=== PATIENT | female | born 1940 | race Caucasian/White ===

== ENCOUNTER 2017-01-25 08:04 | Emergency (ER) | payer MEDICARE, OTHER ==
--- NOTE | 2017-01-25 09:05 | ER PHYSICIAN DOCUMENTATION ---
Physician Documentation [facility] Name:Stacie Hartman Age:76 yrs Sex:Female :1940 Arrival Date:01/25/2017 Time:08:04 Bed5 Private MD: Edgard Neff Disposition: 01/25 10:07 Chart complete. tl1 Disposition: 01/25/17 08:54 Discharged to Home/Self Care. Impression: Acute Neck Pain. - Condition is Good. - Discharge Instructions: NECK PAIN, No Trauma. - Prescriptions for North 5- 325 mg Oral - take 1 tablet by ORAL route every 6 hours As needed; 20 tablet. Robaxin 500 mg Oral - take 1 tablet by ORAL route every 6 hours As needed; 40 tablet. Zofran 4 mg Oral - take 1-2 tablet by ORAL route every 4-6 hours As needed; 10 tablet. - Medical Reconciliation form form. - Follow up: Olive Kaur MD; When: 4- 6 days; Reason: Recheck today's complaints, Continuance of care. - Problem is an ongoing problem. - Symptoms are unchanged. HPI: 08:19 This 76 yrs old Female presents to ER with complaints of Neck Pain, >24Hrs tl1 Old. 08:20 The patient or guardian complains of pain. The symptoms are located at the cervical tl1 spine. Onset: The symptom(s)/episode began/occurred gradually, 2 day(s) ago. Context: The neck injury/problem resulted from Reading for a prolonged period of time 3 days ago.. When she awakened the next morning, she had right posterior neck stiffness which has slowly progressed.. Associated signs and symptoms: Pertinent positives: This patient does not have any pertinent positive signs or symptoms associated with neck pain. Pertinent negatives: fever, headache, bladder incontinence, nausea, numbness, tingling, vomiting. The pain radiates a little bit towards the right scapula. Modifying factors: The symptoms are alleviated by remaining still, the symptoms are aggravated by movement. Severity of symptoms: At their worst the symptoms were moderate, in the emergency department the symptoms are unchanged. Risk factors for neck injury: no risk factors present. She has had similar issues in the past and had an MRI of her neck about 5 years ago, but she cannot recall the exact details.. This episode is worse than usual. She denies fever, h/a, incontinence of any N/W/T.. Historical: - Allergies: SULFA (SULFONAMIDES); Codeine; - Home Meds: 1. levothyroxine oral 2. PREVASTATIN - PMHx: HYPOTHYROIDISM; HYPERCHOLESTEROL; - PSHx: Hysterectomy; ELBOW; - Tetanus: < 10 years. - Ebola Screening: : Patient denies travel to an Ebola-affected area in the 21 days before illness onset. No symptoms or risks identified at this time. . - Immunization history: Flu Vaccine < 1 year. - Social history: Smoking status: Patient states was never smoker of tobacco. ROS: 08:20 Neck: Positive for pain with movement, tenderness, Negative for mass, rash, bony tl1 tenderness. 08:20 All other systems are negative. Exam: 08:20 Constitutional: This is a well developed, well nourished patient who is awake, alert, tl1 and in no acute distress. 08:20 Head/face: Exam is negative for acute changes. 08:20 Eyes: Periorbital structures: appear normal, Pupils: equal, round, and reactive to light and accomodation. 08:20 ENT: External ear(s): are unremarkable, Nose: is normal. 08:20 ENT: TM's: NOT EXAMINED. 08:20 Neck: External neck: is normal, C-spine: vertebral tenderness, is not appreciated, ROM/movement: pain, that is moderate, with rotation to the right, with flexion, Meningeal signs: are not present, Lymph nodes: no appreciated lymphadenopathy. 08:20 Cardiovascular: Rate: normal, Rhythm: Heart sounds: normal. 08:20 Respiratory: Respirations: normal, Breath sounds: are normal. 08:20 Abdomen/GI: Palpation: abdomen is soft and non-tender. 08:20 Skin: Exam negative for acute changes. 08:20 Neuro: Orientation: is normal, Mentation: is normal, Memory: is normal, Cranial nerves: grossly normal, Motor: moves all fours, Gait: is steady. Vital Signs: 08:21 BP 183 / 90; Pulse 75; Resp 18; Temp 97.9; Pulse Ox 97% on R/A; Weight 86.18 kg; Height lc 5 ft. 9 in. (175.26 cm); Pain 9/10; 08:45 BP 181 / 74; Pulse 70; Resp 16; Pulse Ox 93% on R/A; 09:00 BP 170 / 74; Pulse 69; Resp 16; Pulse Ox 92% ; 08:21 Body Mass Index 28.06 (86.18 kg, 175.26 cm) MDM: 08:19 Patient medically screened. tl1 09:00 Data reviewed: vital signs, nurses notes, and as a result, I will discharge patient. tl1 Data interpreted: Pulse oximetry:. Counseling: I had a detailed discussion with the patient and/or guardian regarding: the historical points, exam findings, and any diagnostic results supporting the discharge/admit diagnosis, the need for outpatient follow up, to return to the emergency department if symptoms worsen or persist or if there are any questions or concerns that arise at home. Dispensed Medications: No medications were administered Signatures: Lillian Cook, DAVDI RN Edgard Collier MD MD tl1
--- NOTE | 2017-01-25 09:05 | ER NURSING DOCUMENTATION ---
Nurse's Notes [facility] Name:Stacie Hartman Age:76 yrs Sex:Female :1940 Arrival Date:01/25/2017 Time:08:04 Bed5 Private MD: Diagnosis:Acute Neck Pain Presentation: 01/25 08:12 Acuity: MILAN 3 08:25 Presenting complaint: Patient states: C/O RIGHT NECK TIGHTNESS AND PAIN SINCE LAST PM. lc WAS READING IN A COLD LIBRARY YESTERDAY AND NECK GOT STIFF, NO OTHER TRAUMA. NO NUNMBNESS OR TINGLING TO EXTREMETIES. TRIED ADVIL AND TYLENOL WITHOUT RELIEF. Transition of care: Home. Acute neurological deficit: none identified. Notified ED Physician of patient's arrival and CC. 08:25 Method Of Arrival: Private Vehicle Triage Assessment: 08:31 General: Appears uncomfortable, Behavior is appropriate for age, cooperative. Pain: Complains of pain in right side of NECK Pain At worst was 10 out of 10 on a pain scale. Quality of pain is described as aching, throbbing, Pain began 1 day ago. Neuro: Level of Consciousness is awake, alert, Oriented to person, place, time, event. Neuro: Denies paresthesias numbness. Derm: Skin is pink, warm & dry. Historical: - Allergies: SULFA (SULFONAMIDES); Codeine; - Home Meds: 1. levothyroxine oral 2. PREVASTATIN - PMHx: HYPOTHYROIDISM; HYPERCHOLESTEROL; - PSHx: Hysterectomy; ELBOW; - Tetanus: < 10 years. - Ebola Screening: : Patient denies travel to an Ebola-affected area in the 21 days before illness onset. No symptoms or risks identified at this time. . - Immunization history: Flu Vaccine < 1 year. - Social history: Smoking status: Patient states was never smoker of tobacco. Screenin:33 Infectious Disease Risk None. Abuse screen: Denies threats or abuse. Denies injuries from another. Nutritional screening: No deficits noted. Assessment: 08:33 See Triage Assessment done by same RN. Neuro: Level of Consciousness is awake, alert. Vital Signs: 08:21 BP 183 / 90; Pulse 75; Resp 18; Temp 97.9; Pulse Ox 97% on R/A; Weight 86.18 kg; Height 5 ft. 9 in. (175.26 cm); Pain /10; 08:45 BP 181 / 74; Pulse 70; Resp 16; Pulse Ox 93% on R/A; lc 09:00 BP 170 / 74; Pulse 69; Resp 16; Pulse Ox 92% ; lc 08:21 Body Mass Index 28.06 (86.18 kg, 175.26 cm) lc ED Course: 08:08 Patient arrived in ED. ama 08:12 Lillian Cook, RN is Primary Nurse. 08:12 Triage completed. 08:19 Edgard Amanda MD is Attending Physician. tl1 08:33 Valuables Remains with patient Patient has correct armband on for positive lc identification. Bed in low position. Call light in reach. Adult w/ patient. 08:53 Olive Kaur MD is Referral Physician. tl1 01/26 16:08 patient's called to ask if patient could take pain medicine more often. Dr. madhav Amanda instructed patient to take Brice q 1-2 tabs q 4 hours. Patient's verbalized understanding of the instructions. Administered Medications: No medications were administered Outcome: 01/25 08:54 Discharge ordered by . tl1 09:03 Discharged to home ambulatory, with significant other. 09:03 Condition: stable 09:03 Discharge Assessment: Patient awake, alert and oriented x 3. No cognitive and/or functional deficits noted. Patient verbalized understanding of disposition instructions. 09:03 Discharge instructions given to patient, significant other, Instructed on discharge instructions, follow up and referral plans. medication usage, BP RECHECKS AND F/U WITH PCP IF REMAINS HIGH Demonstrated understanding of instructions, medications, Prescriptions given X 3. 09:04 Patient left the ED. 01/26 16:49 Discharge F/U Call: Spoke with: spouse with permission of patient. Are you having any lc pain? yes. How are you managing your pain? Patient is taking medication: PRESCRIBED Heat/Ice Have you filled your prescriptions? yes. Did your discharge instructions answer all of your questions? yes Have you made a f/u appointment? yes Overall Care on a scale of 1-10 with 10 being the best care, you rate our care as: Other comments: STILL HAVING PAIN, WILL SEE ORTHO TOMORROW Signatures: Lillian Cook RN RN lc Roberts, Leslie, RN RN lpr Averdick, Andrew, Reg Reg ama Edgard Amanda, MD tl1
== END 2017-01-25 09:05 | disposition home or self-care (01) ==
LOC: ER 08:04
DX: M54.2 Cervicalgia (principal); M43.6 Torticollis; Z79.899 Other long term (current) drug therapy
CPT/HCPCS: 99282

== ENCOUNTER 2017-01-27 19:16 | Inpatient (IN) | payer MEDICARE, OTHER ==
[2017-01-27 19:53] LABS: URINE MUCUS NONE SEEN (Up to 25%); URINE RBC NONE SEEN (0-5/hpf); URINE SQUAMOUS EPITHELIAL CELL NONE SEEN (<= 15/hpf)
[2017-01-27 20:15] LABS: URINE APPEARANCE CLEAR; URINE COLOR YELLOW; URINE LEUKOCYTE ESTERASE NEGATIVE (NEGATIVE); URINE NITRITE POSITIVE (NEGATIVE); URINE SPECIFIC GRAVITY > OR = 1.030 (0.001-1.035)
[2017-01-27 20:16] LABS: URINE BACTERIA >50 ORGANISMS/hpf (<10/hpf); URINE BILIRUBIN NEGATIVE (NEGATIVE); URINE BLOOD NEGATIVE (NEGATIVE); URINE GLUCOSE NORMAL (NEGATIVE); URINE KETONE 10mg/dL (1+) (NEGATIVE); URINE PH 5.5 (5-7); URINE PROTEIN 30mg/dL (1+) (NEG - TRACE); URINE UROBILINOGEN 0.2mg/dL (Normal) (NEG-1mg/dL); URINE WBC 0-4/hpf (0-4/hpf)
[2017-01-27 20:19] LABS: OSMOLALITY, URINE 714 mOsm/Kg (500-800)
[2017-01-27 21:01] LABS: TROPONIN I < 0.012 ng/mL (0.00-0.034)
[2017-01-27] MEDS ORDERED: ONDANSETRON HCL 4 MG/2 ML VIAL ONE (21:27)
[2017-01-27] MEDS ORDERED: KETOROLAC TROMETHAMINE 30 MG/ML VIAL ONE (21:32)
[2017-01-27] MEDS ORDERED: PIPERACILLIN /TAZO 3.375 GM/10 ML VIAL IV ONE (21:33)
[2017-01-27] MEDS ORDERED: NORMAL SALINE 100 ML IV ONE (21:48)
[2017-01-27] MEDS ORDERED: MAG-AL PLUS XS SUSP 30 ML UDC PO PRN (21:53)
[2017-01-27] MEDS ORDERED: HOME MEDICATION LIST NEEDED 1 EA EACH MISC ONE (21:53)
[2017-01-27] MEDS ORDERED: POLYETHYLENE GLYCOL 3350 17 GM POWD.PACK PO PRN (21:53)
[2017-01-27 22:00] LABS: BLOOD UREA NITROGEN 12 mg/dL (7-17); CHLORIDE 86 mmol/L (98-107); EST GLOMERULAR FILTRATION RATE > 60 mL/min; GLUCOSE 102 mg/dL (70-100); POTASSIUM 4.4 mmol/L (3.5-5.1); SODIUM 118 mmol/L (137-145)
[2017-01-27] MEDS ORDERED: NORMAL SALINE 500 ML IV SCH (22:00)
[2017-01-27] MEDS ORDERED: ONDANSETRON HCL 4 MG/2 ML VIAL IV PRN (22:03)
--- NOTE | 2017-01-28 00:29 | ER NURSING DOCUMENTATION ---
Nurse's Notes [facility] Name:Stacie Hartman Age:76 yrs Sex:Female :1940 Arrival Date:01/27/2017 Time:19:16 Bed4 Private MD:Mayela Arellano Diagnosis:Hyponatremia;Dehydration;Sepsis-: Rule out;Urinary Tract Infection (UTI)-- Urosepsis Rule out Presentation: 01/27 19:27 Presenting complaint: Patient states: Saw Dr Arellano today for a recheck of neck pain that rs started 5 days ago. She was in this ER three days ago and tx with pain med and muscle relaxant. Labs were done today by Dr Arellano due to weakness and sodium was 115. Pt denies injury to her neck. No hx of low sodium. No nhx of CA. Per amb crew: NSR, HR 80, BP 174/84, pulse ox nml. Transition of care: Home. Notified ED Physician of patient's arrival and CC Dr. Ortiz notified. Mechanism of Injury:. 19:27 Acuity: MILAN 2 rs 19:27 Method Of Arrival: EMS: 410 rs 20:07 Presenting complaint: states: Pain started in her neck and has moved rs progressively down her body on both sides. Today she is having severe leg pain, and all of the other pains remain. Reports the sides of her neck and face are swollen, and her gait was unsteady this afternoon. Remarkably changed since this morning. The medications that she was given in in the ER had no effect on her pain, except it allowed her to sleep. Triage Assessment: 19:36 General: Appears in no apparent distress, comfortable, well developed, well nourished, rs well groomed, Behavior is cooperative, pleasant, Denies fever, chills. Pain: Complains of pain in Bilat neck pain. Pain does not radiate. Quality of pain is described as aching, Pain began 5 days ago. EENT: No deficits noted. Denies decreased hearing blurred vision photophobia nasal congestion, nasal discharge, difficulty swallowing. Neuro: No deficits noted. Level of Consciousness is awake, alert, Oriented to person, place, time, event, Water Tester are equal bilaterally Moves all extremities. Speech is normal, Facial symmetry appears normal, Pupils are PERRLA, Reports weakness Denies blurred vision dizziness, paresthesias numbness headache. Cardiovascular: No deficits noted. Capillary refill < 3 seconds Heart tones S1 S2 present Murmur absent Pulses are 3+ in left radial artery Denies lightheadedness, palpitations, syncope, Rhythm is sinus rhythm Chest pain is denied. Respiratory: No deficits noted. Airway is patent Respiratory effort is even, unlabored, Respiratory pattern is regular, symmetrical, Breath sounds are clear bilaterally. Denies shortness of breath. GI: No deficits noted. Abdomen is flat, non- distended Bowel sounds present X 4 quads. Abd is soft and non tender Denies constipation, diarrhea, nausea, vomiting. : Reports burning with urination Denies discharge, urinary frequency, urgency, vaginal bleeding. Derm: No deficits noted. Skin is pink, warm & dry. Musculoskeletal: Range of motion intact in neck neck is supple, able to touch chin to chest easily. Reports pain in bilat neck. Denies. Historical: - Allergies: SULFA (SULFONAMIDES); Codeine; - Home Meds: 1. levothyroxine oral 2. PREVASTATIN - PMHx: HYPOTHYROIDISM; Hyperlipidemia; Acute Neck Pain (January 25, 2017); - PSHx: HYSTERECTOMY; Repair of elbow fx; - Tetanus: unknown. - Ebola Screening: : Patient negative for fever greater than or equal to 101.5 degrees Fahrenheit, and additional compatible Ebola Virus Disease symptoms. Patient denies exposure to infectious person. Patient denies travel to an Ebola-affected area in the 21 days before illness onset. No symptoms or risks identified at this time. . - Immunization history: Unable to Obtain. - Social history: Smoking status: Patient states was never smoker of tobacco. Patient uses alcohol occasionally. - History obtained from: Records obtained from Dr Arellano. Screenin:35 Infectious Disease Risk None. Abuse screen: Denies threats or abuse. Nutritional rs screening: No deficits noted. Assessment: 19:52 General: States her weight is up by about 6 pounds from her normal weight. . rs Vital Signs: 19:25 BP 175 / 72; Pulse 78; Resp 20; Temp 98.3; Pulse Ox 93% on R/A; Weight 69.85 kg; Height rs 5 ft. 2 in. (157.48 cm); Pain 4/10; 19:25 BP 175 / 72; Pulse 78; Resp 20; Pulse Ox 88% on R/A; rs 19:30 BP 173 / 84; Pulse 80; Resp 18; rs 19:45 BP 169 / 79; Pulse 78; Resp 18; Pulse Ox 91% on R/A; rs 20:00 BP 171 / 92; Pulse 84; Resp 18; Pulse Ox 96% on 2 lpm NC; rs 20:30 BP 172 / 89; Pulse 79; Resp 18; Pulse Ox 96% on 2 lpm NC; Pain 6/10; rs 20:45 BP 164 / 77; Pulse 89; Resp 20; Pulse Ox 96% on 2 lpm NC; Pain 7/10; rs 21:00 BP 144 / 78; Pulse 91; Resp 20; Pulse Ox 95% on 2 lpm NC; Pain 8/10; rs 21:30 BP 142 / 76; Pulse 75; Resp 20; Pulse Ox 96% on 2 lpm NC; Pain 6/10; rs 22:00 BP 163 / 73; Pulse 77; Resp 18; Pulse Ox 94% on 2 lpm NC; Pain 5/10; rs 22:30 BP 142 / 76; Pulse 77; Pulse Ox 94% 2 lpm ; rs 23:00 BP 147 / 79; Pulse 82; Resp 18; Pulse Ox 95% on 2 lpm NC; rs 23:30 BP 149 / 72; Pulse 76; Resp 16; Pulse Ox 95% on 2 lpm NC; Pain 6/10; rs 19:25 Body Mass Index 28.17 (69.85 kg, 157.48 cm) rs Hermosa Coma Score: 20:20 Eye Response: spontaneous(4). Verbal Response: oriented(5). Motor Response: obeys cd commands(6). Total: 15. ED Course: 19:15 Notified ED Physician of patient's arrival and chief complaint. Dr. Ortiz notified. Arm rs band placed on Bed in low position Call Light in Reach HOB Elevated Side rails up x2. Labs ordered per protocol. Drawn by EMS. 19:15 Pulse Ox - RN Monitoring Only NIBP On - RN Monitoring Only. Door closed. Noise rs minimized. Lights dimmed. 19:17 Patient arrived in ED. em2 19:17 No PCP, Identified is Private Physician. em2 19:18 Fritz Ortiz MD is Attending Physician. cd 19:26 Lori Carmona, RN is Primary Nurse. rs 19:33 Triage completed. rs 19:36 Urine collected. Clean catch specimen. em1 19:44 Mayela Arellano MD is Private Physician. em2 20:00 Family accompanied patient. EKG done per protocol. rs 20:11 EKG done. (by ED staff). Reviewed by Fritz Ortiz MD. First set of blood cultures drawn lc Second set of blood cultures drawn by me by ED senior games technician. 21:13 MD assisted with LP attempt. Pt crescencio well. No complications. Area cleaned of Betadine, rs bacitracin applied and two bandaids. Laid flat in a position of comfort, warm blankets. Lights dimmed. 22:07 Mayela Arellano MD is Admitting Physician. cd 22:32 Valuables Given to family. rs 23:39 admission to elsy /surg area. rs 23:53 Flushed Converted IV to saline lock on left hand. rs 23:53 One-on-one care X 120 minutes. rs 23:54 Resting quietly. rs Administered Medications: Completed: NS 0.9% 500 ml IV at bolus once Completed: Zosyn 3.375 grams IVPB once 19:30 Drug: NS 0.9% 500 ml; Volume: 500 ml; Route: IV; Rate: bolus; Site: left wrist; rs Delivery: [place] [facility]; 23:55 Follow up: IV Status: Completed infusion; IV converted to saline lock; IV Intake: 1000mlrs 21:17 Drug: Zofran 4 mg; Route: IVP; Infused Over: 2 mins; Site: left femoral; mv 21:57 Follow up: Response: No adverse reaction rs 21:22 Drug: Toradol 15 mg; Route: IVP; Rate: 15 mg/min; Infused Over: 2 mins; Site: left hand;rs 22:02 Follow up: Response: Pain is unchanged, physician notified rs 21:26 Drug: Dilaudid 0.25 mg; Route: IVP; Rate: 0.125 mg/min; Infused Over: 2 mins; Site: rs left hand; 22:03 Follow up: Response: Pain is unchanged, physician notified rs 21:38 Drug: Zosyn 3.375 grams; Volume: 100 ml; Route: IVPB; Rate: 100 ml/hr; Site: left hand; rs Delivery: [place] [facility]; 22:03 Follow up: Response: No adverse reaction rs 22:34 Follow up: IV Status: Completed infusion; IV Intake: 100ml rs 21:52 Drug: Dilaudid 0.25 mg; Route: IVP; Rate: 0.125 mg/min; Infused Over: 2 mins; Site: rs left hand; 22:19 Follow up: Response: Pain is decreased rs 22:30 Drug: Dilaudid 0.25 mg; Route: IVP; Rate: 0.125 mg/min; Infused Over: 2 mins; Site: rs left hand; 23:42 Follow up: Response: Pain is decreased rs Intake: 22:34 IV: 100ml; Total: 100ml. rs 23:55 IV: 1000ml; Total: 1100ml. rs Outcome: 22:08 Decision to Admit by Provider. cd 01/28 00:10 Admitted to Med/surg accompanied by nurse, via stretcher. rs Condition: improved Report given to Med /otolaryngology surgeontrade promotion analyst instructions given to patient, family, Instructed on need to admit Demonstrated understanding of instructions. 00:28 Patient left the ED. bw2 Signatures: Lori Carmona RN RN rs Coleman, Linda, RN RN lc Daley, Chris, MD MD Meinking-tech, Karen-tech em1 Meinking-reg, Karen-reg em2 noy snow Beth bw2
--- NOTE | 2017-01-28 00:29 | ER PHYSICIAN DOCUMENTATION ---
Physician Documentation [facility] Name:Stacie Hartman Age:76 yrs Sex:Female :1940 Arrival Date:01/27/2017 Time:19:16 Bed4 Private MD:Mayela Arellano ED PhysicianDaFritz sánchez Disposition: 01/27/17 22:08 Admit ordered for Mayela Arellano. Preliminary diagnosis are Hyponatremia, Dehydration, Sepsis - : Rule out, Urinary Tract Infection (UTI) - - Urosepsis Rule out. - Bed requested for Medical/Surgical. - Condition is Fair. - Problem is new. - Symptoms are unchanged. 23 HR OBS No HPI: 01/27 19:30 This 76 yrs old Female presents to ER via EMS with complaints of General cd Weakness, neck pain, myalgias, ataxia. 19:30 The patient's problem is reported as difficulty walking, due to weakness. Onset: The cd symptom(s)/episode began/occurred gradually, 5 day(s) ago. Duration: The episode is continuous, the symptoms became worse today. Context: the episode(s) was witnessed, by family, , occurred at home, occurred while the patient was walking, Possible contributing factors include: recent illness, The patient reports having neck discomfort starting 5 days ago. She was seen in the ED by Dr. Cal Amanda on Friday and diagnosed with Cervical Strain. She was placed on pain meds and muscle relaxants. She continued to have neck pain that progressed down her spine. She denies chest pain, cough, fever, chills, severe headache, confusion, but developed myalgias in her back and legs. She also developed mild ataxia. The patient went in to see JULISSA Hairston, this afternoon for her symptoms. Labs were drawn and she was found to have a Na of 115. She was advised to come to the Emergency Department for evaluation and probable admission to [facility].. The symptoms are alleviated by nothing. The symptoms are aggravated by changing position. Associated signs and symptoms: Pertinent positives: ataxia, weakness, Pertinent negatives: abdominal pain, blurred vision, chest pain, confusion, diaphoresis, diarrhea, headache, lightheadedness, numbness, palpitations, seizure, shortness of breath, tingling, vomiting. Severity of symptoms: At their worst the symptoms were moderate in the emergency department the symptoms are unchanged. Patient's baseline: Neuro: alert and fully oriented, Motor: no deficits, Ambulation: walks without assistance, Speech: normal. Historical: - Allergies: SULFA (SULFONAMIDES); Codeine; - Home Meds: 1. levothyroxine oral 2. PREVASTATIN - PMHx: HYPOTHYROIDISM; Hyperlipidemia; Acute Neck Pain (January 25, 2017); - PSHx: HYSTERECTOMY; Repair of elbow fx; - Tetanus: unknown. - Ebola Screening: : Patient negative for fever greater than or equal to 101.5 degrees Fahrenheit, and additional compatible Ebola Virus Disease symptoms. Patient denies exposure to infectious person. Patient denies travel to an Ebola-affected area in the 21 days before illness onset. No symptoms or risks identified at this time. . - Immunization history: Unable to Obtain. - Social history: Smoking status: Patient states was never smoker of tobacco. Patient uses alcohol occasionally. - History obtained from: Records obtained from Dr Arellano. ROS: 20:20 Eyes: Negative for injury, pain, redness, discharge, blurry vision and loss of vision. cd 20:20 ENT: Negative for injury, pain, epistaxis and discharge. cd Cardiovascular: Negative for chest pain, palpitations, edema and pleuritic pain. Respiratory: Negative for shortness of breath, dyspnea on exertion, cough, sputum production, wheezing, hemoptysis and pleuritic chest pain. 20:20 Abdomen/GI: Negative for abdominal pain, nausea, vomiting, diarrhea, constipation, distension, melena, hematochezia and hematemesis. 20:20 Constitutional: Positive for body aches, poor PO intake, Negative for chills, fever. 20:20 Neck: Positive for pain with movement, pain at rest, Negative for stiffness, swelling, swollen nodes, bony tenderness. 20:20 Back: Positive for pain at rest, pain with movement. 20:20 : Negative for urinary symptoms, urinary frequency, pelvic pain, flank pain, burning with urination, foul smelling urine. 20:20 MS/extremity: Positive for tenderness. 20:20 Skin: Negative for acute changes. 20:20 Neuro: Positive for gait disturbance, weakness, Negative for altered mental status, headache, loss of consciousness, numbness, seizure activity, speech changes, syncope, tingling, visual changes. 20:20 All other systems are negative. Exam: Head/Face: Normocephalic, atraumatic. Eyes: Pupils equal round and reactive to light, extra-ocular motions intact. Lids and lashes normal. Conjunctiva and sclera are non-icteric and not injected. Cornea within normal limits. Periorbital areas with no swelling, redness, or edema. 20:20 ENT: Nares patent. No nasal discharge, no septal abnormalities noted. Tympanic cd membranes are normal and external auditory canals are clear. Oropharynx with no redness, swelling, or masses, exudates, or evidence of obstruction, uvula midline. Mucous membranes dry Chest/axilla: Normal chest wall appearance and motion. Nontender with no deformity. No lesions are appreciated. Cardiovascular: Regular rate and rhythm with a normal S1 and S2. No gallops, murmurs, or rubs. Normal PMI, no JVD. No pulse deficits. Respiratory: Lungs have equal breath sounds bilaterally, clear to auscultation and percussion. No rales, rhonchi or wheezes noted. No increased work of breathing, no retractions or nasal flaring. Abdomen/GI: Soft, non-tender, with normal bowel sounds. No distension or tympany. No guarding or rebound. No evidence of tenderness throughout. Back: No spinal tenderness. No costovertebral tenderness. Full range of motion. 20:20 Skin: Warm, dry with normal turgor. Normal color with no rashes, no lesions, and no evidence of cellulitis. 20:20 Constitutional: The patient appears alert, awake, non-diaphoretic, non-toxic, well developed, well nourished, in obvious distress, moderately distressed. 20:20 Neck: External neck: tenderness, that is mild, of the left trapezius and right trapezius, ROM/movement: Meningeal signs: are not present, nuchal rigidity, is not appreciated, Lymph nodes: no appreciated lymphadenopathy. 20:20 Musculoskeletal/extremity: Extremities: patient has muscle aches over her extremities, ROM: limited active range of motion due to pain, Circulation is intact in all extremities. Sensation intact. 20:20 Neuro: Orientation: is normal, to person, place & time. Mentation: is normal, appropriate for stated age, Memory: is normal, Cranial nerves: CN II- XII are normal as tested, Cerebellar function: Motor: moves all fours, Sensation: is normal, no obvious gross deficits, Gait: not tested. Vital Signs: 19:25 BP 175 / 72; Pulse 78; Resp 20; Temp 98.3; Pulse Ox 93% on R/A; Weight 69.85 kg; Height rs 5 ft. 2 in. (157.48 cm); Pain 4/10; 19:25 BP 175 / 72; Pulse 78; Resp 20; Pulse Ox 88% on R/A; rs 19:30 BP 173 / 84; Pulse 80; Resp 18; rs 19:45 BP 169 / 79; Pulse 78; Resp 18; Pulse Ox 91% on R/A; rs 20:00 BP 171 / 92; Pulse 84; Resp 18; Pulse Ox 96% on 2 lpm NC; rs 20:30 BP 172 / 89; Pulse 79; Resp 18; Pulse Ox 96% on 2 lpm NC; Pain 6/10; rs 20:45 BP 164 / 77; Pulse 89; Resp 20; Pulse Ox 96% on 2 lpm NC; Pain 7/10; rs 21:00 BP 144 / 78; Pulse 91; Resp 20; Pulse Ox 95% on 2 lpm NC; Pain 8/10; rs 21:30 BP 142 / 76; Pulse 75; Resp 20; Pulse Ox 96% on 2 lpm NC; Pain 6/10; rs 22:00 BP 163 / 73; Pulse 77; Resp 18; Pulse Ox 94% on 2 lpm NC; Pain 5/10; rs 22:30 BP 142 / 76; Pulse 77; Pulse Ox 94% 2 lpm ; rs 23:00 BP 147 / 79; Pulse 82; Resp 18; Pulse Ox 95% on 2 lpm NC; rs 23:30 BP 149 / 72; Pulse 76; Resp 16; Pulse Ox 95% on 2 lpm NC; Pain 6/10; rs 19:25 Body Mass Index 28.17 (69.85 kg, 157.48 cm) rs Beaumont Coma Score: 20:20 Eye Response: spontaneous(4). Verbal Response: oriented(5). Motor Response: obeys cd commands(6). Total: 15. Procedures: 21:20 Lumbar Puncture: Patient placed in sitting position. Prepped with Betadine. Draped cd using sterile technique. Collected 0 ml's of Puncture site dressed with band aid, Procedure unsuccessful. Patient tolerated well. MDM: 19:18 Patient medically screened. 19:30 Data interpreted: Pulse oximetry: on room air is 95 %. Interpretation: normal. 19:45 Differential diagnosis: metabolic disorder, drug effects, Meningitis, Urosepsis, cd Dehydration, Hypochloremic Hyponatremia. 21:45 Data reviewed: vital signs, nurses notes, EMS record, old medical records, lab test cd result(s), EKG, radiologic studies, and as a result, I will admit patient, initiate a consult, from a FP celebrity chef entrepreneur media personality, administer IV fluids, NS bolus, NS maintenence. 21:55 Counseling: I had a detailed discussion with the patient and/or guardian regarding: the cd historical points, exam findings, and any diagnostic results supporting the discharge/admit diagnosis, lab results, the need for further work-up and treatment in the hospital, risk of leaving the Emergency Department, without completed treatment. Response to treatment: the patient's symptoms have mildly improved after treatment, and as a result, I will admit patient. Physician consultation: Mayela Arellano MD was called at 21:30, was contacted at 21:30, regarding admission, to the floor, consult, patient's condition, need to come to ED to see patient, need to evaluate the patient as soon as possible, and will see patient in ED, shortly. 22:00 Neurological re-evaluation: normal neurological exam including cranial nerves, cd orientation, mentation, motor and sensory exam, cerebellar testing, GCS normal, and normal gait. Neurological re-evaluation: all normal except: gait: not tested. 01/27 20:17 Order name: UA W/ MICRO -CULTURE IF IND; Complete Time: 21:04 [facility]LA 01/27 21:12 Interpretation: Abnormal: URINE SPECIFIC GRAVITY > OR = 1.030; URINE NITRITE POSITIVE; cd URINE KETONE 10mg/dL (1+); URINE WBC 0-4/hpf; URINE BACTERIA >50 ORGANISMS/hpf; Dehydration, UTI. 01/27 20:19 Order name: OSMOLALITY, SERUM; Complete Time: 21:04 EDLA 01/27 21:12 Interpretation: Abnormal: OSMOLALITY, SERUM 246; Low Serum Osmolality. 01/27 20:21 Order name: OSMOLALITY, URINE; Complete Time: 21:04 EDLA 01/27 21:13 Interpretation: Normal: OSMOLALITY, URINE 714. 01/27 20:55 Order name: URINE SODIUM,RANDOM; Complete Time: 21:04 [facility] 01/27 21:13 Interpretation: Normal. 01/27 20:55 Order name: URINE CREATININE,RANDOM; Complete Time: 21:04 [facility] 01/27 21:13 Interpretation: URINE CREATININE,RANDOM 151.9. 01/27 21:02 Order name: TROPONIN I; Complete Time: 21:04 [facility] 01/27 21:13 Interpretation: Normal. 01/27 22:01 Order name: BASIC METABOLIC PANEL; Complete Time: 22:06 [facility] 01/27 22:06 Interpretation: Abnormal: SODIUM 118; CHLORIDE 86; CARBON DIOXIDE 21; Hypochloremic cd Hyponatremia, Dehydration. 01/28 03:33 Order name: TROPONIN I; Complete Time: 09:24 [facility] 01/28 09:22 Interpretation: Normal. 01/28 05:25 Order name: BASIC METABOLIC PANEL; Complete Time: 09:24 [facility] 01/28 09:23 Interpretation: Normal Except: SODIUM 116; CHLORIDE 90; Hypochloremic Hyponatremia. 01/28 05:25 Order name: C-REACTIVE PROTEIN; Complete Time: 09:24 [facility] 01/28 09:23 Interpretation: Abnormal: C-REACTIVE PROTEIN 47.6; Elevated. 01/28 05:25 Order name: CBC AUTO DIF, MDIF/RMOR IF IND; Complete Time: 09:24 [facility] 01/28 09:23 Interpretation: Normal. 01/28 08:06 Order name: BASIC METABOLIC PANEL; Complete Time: 09:24 [facility] 01/28 09:23 Interpretation: Normal Except: SODIUM 121; CHLORIDE 87; Hypochloremic Hyponatremia, yet cd improved. 01/28 08:19 Order name: URINE CULTURE [facility] 01/28 09:24 Interpretation: Abnormal: URINE CULTURE >100,000; URINE CULTURE GRAM NEGATIVE BACILLUS; cd UTI. 01/28 13:18 Order name: BASIC METABOLIC PANEL [facility] 01/28 16:19 Order name: CORTISOL [facility] 01/28 16:20 Order name: BASIC METABOLIC PANEL [facility] 01/28 16:40 Order name: ALBUMIN [facility] 01/29 06:43 Order name: BASIC METABOLIC PANEL [facility] 01/29 09:28 Order name: NEGATIVE SENSITIVITY PANEL [facility] 01/28 09:09 Order name: CAT SCAN; HEAD W/O CON 32875; Complete Time: 09:24 [facility] 01/28 13:14 Order name: CXR 2V 31401 [facility] 01/29 11:44 Order name: CERVICAL SPINE W/O 09888 [facility] 01/27 19:21 Order name: EKG - 12 Lead; Complete Time: 20:33 cd Dispensed Medications: Completed: NS 0.9% 500 ml IV at bolus once Completed: Zosyn 3.375 grams IVPB once 19:30 Drug: NS 0.9% 500 ml; Volume: 500 ml; Route: IV; Rate: bolus; Site: left wrist; rs Delivery: [employer]; 23:55 Follow up: IV Status: Completed infusion; IV converted to saline lock; IV Intake: 1000mlrs 21:17 Drug: Zofran 4 mg; Route: IVP; Infused Over: 2 mins; Site: left femoral; mv 21:57 Follow up: Response: No adverse reaction rs 21:22 Drug: Toradol 15 mg; Route: IVP; Rate: 15 mg/min; Infused Over: 2 mins; Site: left hand;rs 22:02 Follow up: Response: Pain is unchanged, physician notified rs 21:26 Drug: Dilaudid 0.25 mg; Route: IVP; Rate: 0.125 mg/min; Infused Over: 2 mins; Site: rs left hand; 22:03 Follow up: Response: Pain is unchanged, physician notified rs 21:38 Drug: Zosyn 3.375 grams; Volume: 100 ml; Route: IVPB; Rate: 100 ml/hr; Site: left hand; rs Delivery: [employer]; 22:03 Follow up: Response: No adverse reaction rs 22:34 Follow up: IV Status: Completed infusion; IV Intake: 100ml rs 21:52 Drug: Dilaudid 0.25 mg; Route: IVP; Rate: 0.125 mg/min; Infused Over: 2 mins; Site: rs left hand; 22:19 Follow up: Response: Pain is decreased rs 22:30 Drug: Dilaudid 0.25 mg; Route: IVP; Rate: 0.125 mg/min; Infused Over: 2 mins; Site: rs left hand; 23:42 Follow up: Response: Pain is decreased rs Signatures: Lori Carmona RN RN rs Daley, Chris, MD MD cd vogel, margaux Dipti Mart[facility]phys[facility]
[2017-01-28] MEDS ORDERED: NORMAL SALINE 1,000 ML IV SCH ×2 (02:00→13:04)
[2017-01-28] MEDS ORDERED: PIPERACILLIN /TAZO 2.25 GM/10 ML VIAL IV SCH (02:38)
[2017-01-28] MEDS: KETOROLAC TROMETHAMINE 30 MG/ML VIAL IV PRN ×2 (02:40→11:17)
[2017-01-28 05:16] LABS: BASOPHILS 0.3 % (0.0-2.0); EOSINOPHILS 0.1 % (0.0-6.0); HEMATOCRIT 35.2 % (36.0-48.0); HEMOGLOBIN 12.1 g/dL (12.0-16.0); LYMPHOCYTES 13.5 % (20.0-40.0); LYMPHOCYTES# 1.4 X 10^3uL (0.8-3.8); MEAN CELL VOLUME 86.2 fL (80.0-100.0); MEAN CORPUS. HGB CONCENTRATION 34.5 g/dL (32.0-36.0); MEAN CORPUSCULAR HEMOGLOBIN 29.7 pg (29.0-35.0); MEAN PLATELET VOLUME 7.9 fL (7.4-10.4); MONOCYTES 8.2 % (2.0-10.0); MONOCYTES# 0.8 X 10^3uL (0.2-1.0); NEUTROPHILS 77.9 % (54.0-75.0); PLATELET COUNT 264 X 10^3uL (130-440); RED BLOOD COUNT 4.08 X 10^6uL (4.20-6.10); RED CELL DISTRIBUTION WIDTH 12.6 % (11.5-14.5); WHITE BLOOD COUNT 10.2 X 10^3uL (3.9-10.7)
[2017-01-28 05:22] LABS: BLOOD UREA NITROGEN 12 mg/dL (7-17); C-REACTIVE PROTEIN 47.6 mg/L (<10.0); CALCIUM 8.1 mg/dL (8.4-10.2); CHLORIDE 90 mmol/L (98-107); EST GLOMERULAR FILTRATION RATE > 60 mL/min; GLUCOSE 102 mg/dL (70-100); POTASSIUM 4.1 mmol/L (3.5-5.1)
[2017-01-28 05:24] LABS: SODIUM 116 mmol/L (137-145)
[2017-01-28] MEDS: PIPERACILLIN /TAZO 3.375 GM in NORMAL SALINE MINI-BAG+ 100 ML IV SCH ×4 (05:30→21:40)
[2017-01-28] MEDS ORDERED: NORMAL SALINE 500 ML IV ONE ×2 (06:03→06:30)
--- NOTE | 2017-01-28 06:09 | HISTORY & PHYSICAL ---
DATE OF ADMISSION: 01/27/17 CHIEF COMPLAINT: Neck pain. HISTORY OF PRESENT ILLNESS: This is a 76-year-old female who is a summertime resident who presented to the clinic with a 5-day history of neck pain. She states that she awoke 5 days ago with the abrupt onset of midline posterior neck pain. The pain then worsened over the next few days and she went to the emergency room. Her evaluation was negative. She was prescribed narcotics and a muscle relaxant; [place] and Robaxin. This allowed her to sleep but did not improve the neck pain. She states that she has developed some lower jaw and neck swelling and diffuse myalgias. She rates her pain as 8/10. She has associated profound weakness and stiffness. She states that the pain decreases only to 7/10 after taking the [place]. The neck pain is described as sharp and originates at the base of her skull. She has not had any back pain. She has not had any recent upper respiratory infection symptoms or illnesses. No recent dental procedures. She states that she believes the pain initiated when she was looking down reading a book in the [employer]. She has had a decreased appetite. She has been drinking some water, lemonade, tea and Coke, but she has had only about 20 ounces of fluids daily since the onset of her neck pain. She had one episode of emesis. No diarrhea. She states that she did not sleep for 2 nights prior to going to the emergency room but her sleep improved after beginning narcotics and the muscle relaxants. She has not had any vision changes. She states that she had a severe headache several days ago but she is no longer having a headache now. She has not had any fevers, chills or sweats. No rashes. She states she has pain in her bilateral lower extremities which is worsened with movement. She described the pain as sharp with associated tingling. She states the pain is similar to the pain in her neck. She states she is having some lightheadedness and dizziness especially with changing positions and standing. REVIEW OF SYSTEMS: She states she has not had a history of hypertension but she has had elevated blood pressure in the past. Her blood pressure was quite elevated in the emergency room 2 days ago. She has never been on blood pressure medications. She states that she developed right and left shoulder pain today. She does not have any nausea or vomiting, no abdominal pain. No burning with urination. She states that she did have some problems with urinary retention a couple of months ago. Her physician prescribed a diuretic, however, she had an adverse reaction to the diuretic and it was stopped. She states she has not had any urinary issues for the past 6-8 weeks. Her states that she has not had prior troubles with her balance but she has been quite unsteady today. No visual changes. No decreased hearing. No photophobia. No diarrhea. Her old records have arrived. In November, she had her Medicare annual wellness visit. She was prescribed hydrochlorothiazide to 12.5 mg daily for the swelling and mildly elevated blood pressures. Upon further questioning, she states that she did not tolerate the hydrochlorothiazide. Therefore, she only took this diuretic for short period of time. PAST MEDICAL HISTORY: 1. Hyperlipidemia. 2. Hypothyroidism. 3. Bilateral lower extremity edema. 4. Elevated blood pressure. PAST SURGICAL HISTORY: 1. History of cataract surgery. 2. History of tonsillectomy. 3. History of total abdominal hysterectomy. FAMILY HISTORY: Mom with history of COPD. Father with history of colon cancer. Brother with history of cardiac disorder and hyperlipidemia. SOCIAL HISTORY: She is . Minimal alcohol consumption She has never been a smoker. PHYSICAL EXAMINATION VITAL SIGNS: Temperature 98, pulse 82, respiratory rate 18, blood pressure 141/ 79, 92% on room air. GENERAL: This is a mildly ill appearing female who is in no respiratory distress. She is in mild distress secondary to neck and diffuse musculoskeletal pain. HEENT: Her pupils are equal, round reactive to light. Extraocular movements are intact. Her sclerae are clear. Her TMs are clear. Her nares are clear. Oropharynx is clear. NECK: Her neck is supple. She has pain with movement but she has no meningismus. She has full range of motion. She has some reproducible midline tenderness and paraspinal muscle tenderness. Thyroid is smooth, not enlarged. No palpable nodules. LUNGS: Good aeration throughout and clear. HEART: Regular rate and rhythm without any murmurs, rubs or gallops. ABDOMEN: Soft, nontender, nondistended with good bowel sounds and no hepatosplenomegaly. EXTREMITIES: Warm with no clubbing, cyanosis or edema. NEUROLOGIC: Alert and oriented x 3. Cranial nerves 2-12 are grossly intact without focal deficits. Her motor, sensation and DTRs are intact. Her gait is ataxic. She is unable to do heel to toe walking. She has difficulty with heel and tip toe walking. Negative Romberg. She has difficulty with heel to christian but is able to accomplish this task and some mild difficulty with finger to nose on the right but improved on the left. DATA: White count 14.0, 83.1% neutrophils. Sodium 115, chloride 83, nonfasting glucose 104. TSH and free T4 are normal. CRP is 30.5. Sed rate is 12. Urinalysis: Specific gravity of greater than or equal to 1.030, positive nitrates, 1+ protein, 1+ ketones, serum osmolality 246, urine osmolality 714, urine sodium 32, urine creatinine 151.9. Troponin is less than 0.012. EKG: Normal sinus rhythm at a rate of 85. Her axis is normal. She has nonspecific ST-T wave changes and has abnormal R-wave progression. Abnormal EKG. ASSESSMENT: This is a 76-year-old female who is otherwise remarkably healthy, who presents with neck pain, diffuse myalgias, and hyponatremia of uncertain etiology. PLAN 1. Fluids, electrolytes and nutrition. In the emergency room the patient received normal saline 500 mL. Her sodium improved from 115 to 118. She feels mildly better. She has no evidence of meningismus. Lumbar puncture was unsuccessful. Will give another normal saline 500 mL bolus, recheck sodium in the morning. 2. Neurology. The patient with supple neck without evidence of meningismus. My suspension for meningitis is very low. If she had meningitis she would be very sick. However, we will cover with Zosyn for both urinary tract infection and meningitis at meningitic dosages. Blood cultures times 2 have been obtained. Urine culture sent. CRP mildly elevated. Recheck CRP in the morning. Check CT head in the morning to rule out any intracranial process. Her exam is nonfocal other than ataxia with ambulation. 3. Cardiovascular. The patient without any complaints of chest pain or shortness of breath. She has not had cardiac stress testing done in the past. Abnormal EKG. Normal troponin. Obtain cardiology consult. Repeat troponin and EKG in the morning. 4. Respiratory. The patient with initial normal pulse oximetry, but now has mild hypoxemia. She is currently stable on 2 liters. Will check chest x-ray in the morning given hyponatremia. 5. Disposition. Full core, full tube. Admission to observation. If the patient has additional symptoms she will need to be changed to full admission. CC: [facility]: Fatoumata Cool MD [facility]ERKathleen
[2017-01-28 08:04] LABS: BLOOD UREA NITROGEN 11 mg/dL (7-17); CALCIUM 8.1 mg/dL (8.4-10.2); CHLORIDE 87 mmol/L (98-107); EST GLOMERULAR FILTRATION RATE > 60 mL/min; GLUCOSE 96 mg/dL (70-100); SODIUM 121 mmol/L (137-145)
--- NOTE | 2017-01-28 08:14 | PROGRESS NOTE: IM SOAP ---
IM: PN Subjective General: fatigue (But improved.), no confusion, no good appetite, no diaphoresis , no visual disturbance, no fever, no chills HEENT: no headache (No recurrence of H/A.), no sore throat Cardiovascular: dizziness (Mild with position changes. ), no chest pain, no chest pressure, no palpitations Respiratory: no cough, no SOB Gastrointestinal: no abdominal pain, no nausea, no vomiting Genitourinary: no dysuria Musculoskeletal: pain (Neck pain is worse this morning. BLE and BUE/shoulder pain is improved. ) Neurological: other (She states that her ataxia is improved this morning with ambulation to the BR.), no headache, no limb weakness IM: PN Objective Exam - I&O/Vital Signs I&O: Intake & Output 01/27/17 01/28/17 01/28/17 21:59 05:59 13:59 Intake Total 0 Output Total 500 Balance -500 Weight 66.134 kg Intake: Oral 0 Output: Urine 500 Other: Urine Appearance Clear Urine Color Yellow Voiding Method Toilet # Voids 2 Vital Signs: Last Vital Signs Temp 36.7 C 01/28/17 06:30 Pulse 74 01/28/17 06:30 Resp 16 01/28/17 06:30 BP 120/62 01/28/17 06:30 Pulse Ox 95 01/28/17 06:30 Oxygen Flow Rate 2 Oxygen Delivery Method Nasal Cannula - Constitutional General appearance: Present: cooperative. Absent: acute distress - Head Head exam: Present: atraumatic, normal inspection, normocephalic - Eye Eye exam: Present: EOMI, PERRL - ENT ENT exam: Present: mucous membranes moist - Neck Neck exam: Present: full ROM, tenderness (R cervical neck midline and paracervical reproducible pain.) - Respiratory Respiratory exam: Present: clear. Absent: accessory muscle use - Cardiovascular Cardiovascular exam: Present: RRR. Absent: rubs, systolic murmur - GI/Abdominal GI/Abdominal exam: Present: normal bowel sounds, soft. Absent: organomegaly, tenderness - Extremities Exam Extremities exam: Present: tenderness (B knee and diffuse BLE pain. ). Absent : calf tenderness, Breanna's Sign, edema - Neurological Exam Neurological exam: Present: abnormal gait (Ataxia yesterday. Not retested today , but ataxia reported per nursing staff. ), alert, CN II-XII intact, oriented X3 - Psychiatric Psychiatric exam: Present: normal affect, normal mood - Skin Skin exam: Absent: rash - Allied Health Notes Allied health notes reviewed: nursing (I have spoken with nursing staff multiple times overnight and again this morning.) - Lab Labs: Laboratory Last Values WBC 10.2 X 10^3uL (3.9-10.7) 01/28/17 05:00 RBC 4.08 X 10^6uL (4.20-6.10) L 01/28/17 05:00 Hgb 12.1 g/dL (12.0-16.0) 01/28/17 05:00 Hct 35.2 % (36.0-48.0) L 01/28/17 05:00 MCV 86.2 fL (80.0-100.0) 01/28/17 05:00 MCH 29.7 pg (29.0-35.0) 01/28/17 05:00 MCHC 34.5 g/dL (32.0-36.0) 01/28/17 05:00 RDW 12.6 % (11.5-14.5) 01/28/17 05:00 Plt Count 264 X 10^3uL (130-440) 01/28/17 05:00 MPV 7.9 fL (7.4-10.4) 01/28/17 05:00 Neutrophils % 77.9 % (54.0-75.0) H 01/28/17 05:00 Lymphocytes % 13.5 % (20.0-40.0) L 01/28/17 05:00 Eosinophils % 0.1 % (0.0-6.0) 01/28/17 05:00 Basophils % 0.3 % (0.0-2.0) 01/28/17 05:00 Neutrophils # 8.0 X 10^3uL (2.6-6.7) H 01/28/17 05:00 Lymphocytes # 1.4 X 10^3uL (0.8-3.8) 01/28/17 05:00 Monocytes 8.2 % (2.0-10.0) 01/28/17 05:00 Monocytes # 0.8 X 10^3uL (0.2-1.0) 01/28/17 05:00 Eosinophils # 0.0 X 10^3uL (0.0-0.4) 01/28/17 05:00 Basophils # 0.0 X 10^3uL (0.0-0.1) 01/28/17 05:00 Sodium 121 mmol/L (137-145) L 01/28/17 07:30 Potassium 4.0 mmol/L (3.5-5.1) 01/28/17 07:30 Chloride 87 mmol/L (98-107) L 01/28/17 07:30 Carbon Dioxide 20 mmol/L (22-30) L 01/28/17 07:30 BUN 11 mg/dL (7-17) 01/28/17 07:30 Creatinine 0.8 mg/dL (0.5-1.0) 01/28/17 07:30 GFR Calculation > 60 mL/min 01/28/17 07:30 Glucose 96 mg/dL (70-100) 01/28/17 07:30 Serum Osmolality 246 mOsm/Kg (280-295) L 01/27/17 16:02 Calcium 8.1 mg/dL (8.4-10.2) L 01/28/17 07:30 Troponin I < 0.012 ng/mL (0.00-0.034) 01/28/17 01:40 C-Reactive Protein 47.6 mg/L (<10.0) H 01/28/17 05:00 Urine Color Yellow 01/27/17 16:40 Urine Appearance Clear 01/27/17 16:40 Urine pH 5.5 (5-7) 01/27/17 16:40 Ur Specific [place] > or = 1.030 (0.001-1.035) 01/27/17 16:40 Urine Protein 30mg/dl (1+) (NEG - TRACE) A 01/27/17 16:40 Urine Ketones 10mg/dl (1+) (NEGATIVE) A 01/27/17 16:40 Urine Blood Negative (NEGATIVE) 01/27/17 16:40 Urine Nitrate Positive (NEGATIVE) A 01/27/17 16:40 Urine Bilirubin Negative (NEGATIVE) 01/27/17 16:40 Urine Urobilinogen 0.2mg/dl (normal) (NEG-1mg/dL) 01/27/17 16:40 Ur Leukocyte Esterase Negative (NEGATIVE) 01/27/17 16:40 Urine RBC None seen (0-5/hpf) 01/27/17 16:40 Urine WBC 0-4/hpf (0-4/hpf) 01/27/17 16:40 Ur Squamous Epith Cells None seen (<= 15/hpf) 01/27/17 16:40 Urine Bacteria >50 organisms/hpf (<10/hpf) A 01/27/17 16:40 Urine Mucus None seen (Up to 25%) 01/27/17 16:40 Urine Osmolality 714 mOsm/Kg (500-800) 01/27/17 16:40 Urine Creatinine 151.9 mg/dL 01/27/17 16:40 Urine Sodium 32 mmol/L (30-90) 01/27/17 16:40 Urine Glucose Normal (NEGATIVE) 01/27/17 16:40 Assessment and Plan - Date of Encounter Date of Encounter: 01/28/17 (1) hyponatremia Status: Acute Assessment and plan: She presented with a 5 day h/o neck pain. Labs revealed profound hyponatremia of uncertain etiology. She has now finally responded to the NS bolus with sodium now 121. Will continue IVF and follow closely. CXR, CT head, am cortisol pending. Old records show HCTZ 12.5mg started 11/25 for BLE edema and elevated BPs. Current Visit: Yes (2) neck pain Status: Acute Assessment and plan: She states that she has a h/o neck pain in the past with x-rays showing DDD. She responded to PT. C-spine x-rays show significant multilevel DDD C3-C7.but no fracture or subluxation. LP unsuccessful. Very low suspicion meningitis. Current Visit: Yes (3) ataxia Status: Acute Assessment and plan: Improved this morning. Most likely related to low sodium. PT evaluation. Current Visit: Yes (4) UTI Status: Chronic Assessment and plan: No UTI symptoms. >100K GNB. Continue Zosyn. Current Visit: Yes (5) Hypothyroidism Status: Chronic Assessment and plan: Continue replacement. Old records received and medication list updated. Current Visit: Yes (6) Hyperlipidemia Status: Chronic Assessment and plan: Continue pravastatin. Current Visit: Yes (7) Venous Insufficiency Status: Acute Assessment and plan: Old records state that she has a h/o BLR edema with elevated BPs. HCTZ 12.5mg started 11/25. Current Visit: Yes - Time Spent With Patient Total time spent with greater than 50% in coordination of care (as documented) at patient's floor/unit and/or counseling patient: Greater than 35 minutes (Multiple discussions with patient and .) Quality Questions - VTE Prophylaxis Assessment VTE Present on Admission?: No Patient at risk for venous thromboembolism?: Yes VTE Risk Level: High Risk Pharmaceutical VTE prophylaxis contraindication reason: N/A- VTE prophylaxsis ordered Mechanical VTE prophylaxis contraindication reason: N/A- VTE prophylaxsis ordered
--- NOTE | 2017-01-28 09:08 | CT REPORT ---
HISTORY: Ataxia COMPARISON: None. TECHNIQUE: Axial non-contrast images obtained from skull vertex through foramen magnum. Dose reduction technique was utilized. FINDINGS: Brain volume and ventricular size are normal. Scattered cerebral white matter hypodensities are consi stent with foci of chronic small vessel ischemic disease. No definite acute infarct is demonstrated. No mass or hemorrhage is identified. The skull is intact. Visualized paranasal sinuses are unremarkab le. IMPRESSION: 1. No acute infarct or hemorrhage demonstrated. No discrete mass identified. If there remains signifi cant clinical concern for posterior fossa abnormality, MRI of the brain could be performed for furthe r evaluation. 2. Scattered foci of chronic small vessel ischemic disease in the cerebral white matter. This report was discussed with Dr. Mayela Arellano on 01/28/2017 at 9:08 AM. Final Electronic Signature: This report was electronically signed by Ajit Chauhan MD on 01/28/2017 9:05 AM. selene /
--- NOTE | 2017-01-28 11:18 | RADIOLOGY REPORT ---
Two views of the chest, without prior films for comparison, demonstrate the heart and vessels to be unremarkable. There is elevation of the right hemidiaphragm. The lung forbes otherwise are clear. No infiltrate, fluid or pneumothorax is seen. IMPRESSION: Elevation of the right hemidiaphragm. MTDD
[2017-01-28 13:16] LABS: BLOOD UREA NITROGEN 12 mg/dL (7-17); CHLORIDE 87 mmol/L (98-107); EST GLOMERULAR FILTRATION RATE > 60 mL/min; GLUCOSE 105 mg/dL (70-100); POTASSIUM 4.2 mmol/L (3.5-5.1); SODIUM 122 mmol/L (137-145)
--- NOTE | 2017-01-28 15:35 | CONSULTATION ---
DATE OF CONSULTATION: 01/28/17 IDENTIFYING DATA: A 76-year-old female. REASON FOR CONSULTATION: I was asked by Dr. Arellano to evaluate the patient regarding an abnormal EKG and neck pain. HISTORY OF PRESENT ILLNESS: This is a very pleasant female with no prior cardiovascular history. The patient resides in [place] in the summer. She noted significant neck pain over the weekend. She did present to the emergency department and was discharged on a pain medication along with a muscle relaxant. The patient showed up in Dr. Mcgee office on Friday and was worked up. At that time she had ongoing neck discomfort that was not relieved with pain medication and/or muscle relaxant. In addition, she had significant discomfort in her legs. Upon further workup she was noted to have a severe electrolyte abnormality with significant hyponatremia. Initial sodium level was 118. Repeat one was 116. Dr. Arellano ordered additional workup consisting of cardiac enzymes. All troponins were undetectable. EKG demonstrated normal sinus rhythm with left axis deviation and minor T-wave changes throughout. No evidence of injury, ischemia and/or infarction. PAST MEDICAL HISTORY, ILLNESSES AND SURGERIES 1. Hypothyroidism. 2. Hyperlipidemia. ALLERGIES: Please refer to the medication reconciliation list. They consist of levothyroxine and pravastatin. SOCIAL HISTORY: The patient denies tobacco. FAMILY HISTORY: Negative for premature cardiovascular disease. REVIEW OF SYSTEMS: The remaining comprehensive review of systems is negative. PHYSICAL EXAMINATION GENERAL: Well-developed, well-nourished, no acute distress. VITAL SIGNS: Blood pressure 120/62 with a pulse of 74, respirations 16, satting 95% on 2 liters, afebrile. HEENT: Normocephalic/atraumatic. Ears, eyes, nose and throat are unremarkable. No masses or lesions. NECK: No obvious JVD. Carotid upstrokes are brisk without bruits. Neck is supple with no masses or lesions. CARDIOVASCULAR: PMI is nondisplaced. Heart is regular rate and rhythm without a murmur, gallop or rub. RESPIRATORY: Clear to auscultate bilaterally without wheezes, crackles or rhonchi. ABDOMEN: Bowel sounds present, nontender, nondistended, no hepatosplenomegaly. EXTREMITIES: No clubbing, cyanosis and/or edema, perfuse. NEUROLOGIC: No gross motor or sensory deficits. PSYCHIATRIC: Alert and oriented times 3. EKG: As described above. Troponins are undetectable. White blood cell count is 10.2, hemoglobin 12.1, platelet count of 264,000. Again sodium as described above. Most recent sodium obtained to date is 116 and is being managed by Dr. Arellano. BUN and creatinine are 12 and 0.8 respectively. Troponin again is undetectable. CRP is elevated at 47.6. ASSESSMENT 1. Neck pain not cardiac in etiology. 2. Severe hyponatremia managed by primary. 3. Mildly abnormal EKG. PLAN: Again EKG is mildly abnormal and fairly typical for her age group. This is most likely exacerbated by hyponatremia as described above. At this point in time the neck pain is clearly not cardiac in etiology and the EKG is very unremarkable. No further cardiac workup is required. Copy to Mayela Arellano MD [facility]
[2017-01-28 16:09] LABS: POTASSIUM 3.9 mmol/L (3.5-5.1)
[2017-01-28 16:19] LABS: CALCIUM 7.4 mg/dL (8.4-10.2)
[2017-01-28] MEDS: ACETAMINOPHEN 325 MG TABLET PO PRN (16:24)
[2017-01-28] MEDS ORDERED: PRAVASTATIN SODIUM 40 MG TABLET PO SCH (21:00)
[2017-01-28] MEDS: PRAVASTATIN SODIUM 40 MG TABLET PO SCH (21:40)
[2017-01-29] MEDS: PIPERACILLIN /TAZO 3.375 GM in NORMAL SALINE MINI-BAG+ 100 ML IV SCH ×4 (04:13→21:34)
[2017-01-29] MEDS: PANTOPRAZOLE 40 MG TABLET PO SCH (06:29)
[2017-01-29] MEDS: LEVOTHYROXINE 50 MCG TABLET PO SCH (06:29)
[2017-01-29] MEDS ORDERED: LEVOTHYROXINE 50 MCG TABLET PO SCH (06:30)
[2017-01-29] MEDS: ACETAMINOPHEN 325 MG TABLET PO PRN ×2 (06:35→21:25)
[2017-01-29 06:37] LABS: BLOOD UREA NITROGEN 9 mg/dL (7-17); CALCIUM 7.9 mg/dL (8.4-10.2); EST GLOMERULAR FILTRATION RATE > 60 mL/min; GLUCOSE 94 mg/dL (70-100); POTASSIUM 3.7 mmol/L (3.5-5.1); SODIUM 132 mmol/L (137-145)
[2017-01-29 08:52] LABS: CHLORIDE 109 mmol/L (98-107)
--- NOTE | 2017-01-29 09:02 | PROGRESS NOTE: IM SOAP ---
IM: PN Subjective General: fatigue (Mildly improved.), no confusion, no good appetite, no diaphoresis, no visual disturbance, no fever, no chills HEENT: no headache (No recurrence of H/A.), no sore throat Cardiovascular: dizziness (She does not feel steady on her feet and does not feel safe to go home. ), no chest pain, no chest pressure, no palpitations Respiratory: no cough, no SOB Gastrointestinal: no abdominal pain, no nausea, no vomiting Genitourinary: no dysuria Musculoskeletal: pain (Neck pain continues to be biggest complaint. ) Neurological: other (Ataxia still significant.), no headache, no limb weakness IM: PN Objective Exam - I&O/Vital Signs I&O: Intake & Output 01/28/17 01/29/17 01/29/17 21:59 05:59 13:59 Intake Total 100 4169 Output Total 225 800 Balance -225 -700 4169 Weight 67.132 kg Intake: IV 4169 Left Wrist 4169 Oral 100 Output: Urine 225 800 Other: Urine Appearance Clear Clear Urine Color Yellow Pale Yellow Voiding Method Toilet Toilet # Voids 2 3 Vital Signs: Last Vital Signs Temp 37.0 C 01/29/17 06:20 Pulse 84 01/29/17 06:20 Resp 22 01/29/17 06:20 BP 140/66 01/29/17 06:20 Pulse Ox 83 L 01/29/17 08:05 Oxygen Flow Rate 2 Oxygen Delivery Method Room Air - Constitutional General appearance: Present: cooperative. Absent: acute distress - Head Head exam: Present: atraumatic, normal inspection, normocephalic - Eye Eye exam: Present: EOMI, PERRL - ENT ENT exam: Present: mucous membranes moist - Neck Neck exam: Present: full ROM, tenderness (R cervical neck midline and paracervical reproducible pain.) - Respiratory Respiratory exam: Present: rales (Few soft bibasilar rales.). Absent: accessory muscle use - Cardiovascular Cardiovascular exam: Present: RRR. Absent: rubs, systolic murmur - GI/Abdominal GI/Abdominal exam: Present: normal bowel sounds, soft. Absent: organomegaly, tenderness - Extremities Exam Extremities exam: Present: tenderness (B knee and diffuse BLE pain. ). Absent : calf tenderness, Breanna's Sign, edema - Back Exam Back exam: Absent: paraspinal tenderness, vertebral tenderness - Neurological Exam Neurological exam: Present: abnormal gait (Ataxia yesterday. Not retested today , but ataxia reported per nursing staff. ), alert, CN II-XII intact, oriented X3 - Psychiatric Psychiatric exam: Present: normal affect, normal mood - Skin Skin exam: Absent: rash - Allied Health Notes Allied health notes reviewed: nursing (I have spoken with nursing staff multiple times overnight and again this morning.) - Lab Labs: Laboratory Last Values WBC 10.2 X 10^3uL (3.9-10.7) 01/28/17 05:00 RBC 4.08 X 10^6uL (4.20-6.10) L 01/28/17 05:00 Hgb 12.1 g/dL (12.0-16.0) 01/28/17 05:00 Hct 35.2 % (36.0-48.0) L 01/28/17 05:00 MCV 86.2 fL (80.0-100.0) 01/28/17 05:00 MCH 29.7 pg (29.0-35.0) 01/28/17 05:00 MCHC 34.5 g/dL (32.0-36.0) 01/28/17 05:00 RDW 12.6 % (11.5-14.5) 01/28/17 05:00 Plt Count 264 X 10^3uL (130-440) 01/28/17 05:00 MPV 7.9 fL (7.4-10.4) 01/28/17 05:00 Neutrophils % 77.9 % (54.0-75.0) H 01/28/17 05:00 Lymphocytes % 13.5 % (20.0-40.0) L 01/28/17 05:00 Eosinophils % 0.1 % (0.0-6.0) 01/28/17 05:00 Basophils % 0.3 % (0.0-2.0) 01/28/17 05:00 Neutrophils # 8.0 X 10^3uL (2.6-6.7) H 01/28/17 05:00 Lymphocytes # 1.4 X 10^3uL (0.8-3.8) 01/28/17 05:00 Monocytes 8.2 % (2.0-10.0) 01/28/17 05:00 Monocytes # 0.8 X 10^3uL (0.2-1.0) 01/28/17 05:00 Eosinophils # 0.0 X 10^3uL (0.0-0.4) 01/28/17 05:00 Basophils # 0.0 X 10^3uL (0.0-0.1) 01/28/17 05:00 Sodium 132 mmol/L (137-145) L D 01/29/17 05:45 Potassium 3.7 mmol/L (3.5-5.1) 01/29/17 05:45 Chloride 92 mmol/L (98-107) L 01/28/17 15:40 Carbon Dioxide 22 mmol/L (22-30) 01/29/17 05:45 BUN 9 mg/dL (7-17) 01/29/17 05:45 Creatinine 0.8 mg/dL (0.5-1.0) 01/29/17 05:45 GFR Calculation > 60 mL/min 01/29/17 05:45 Glucose 94 mg/dL (70-100) 01/29/17 05:45 Serum Osmolality 246 mOsm/Kg (280-295) L 01/27/17 16:02 Calcium 7.9 mg/dL (8.4-10.2) L 01/29/17 05:45 Troponin I < 0.012 ng/mL (0.00-0.034) 01/28/17 01:40 C-Reactive Protein 47.6 mg/L (<10.0) H 01/28/17 05:00 Albumin 2.7 g/dL (3.5-5.0) L D 01/28/17 15:40 Cortisol 12.1 ug/dL (10.4-26.4) 01/28/17 07:14 Urine Color Yellow 01/27/17 16:40 Urine Appearance Clear 01/27/17 16:40 Urine pH 5.5 (5-7) 01/27/17 16:40 Ur Specific [place] > or = 1.030 (0.001-1.035) 01/27/17 16:40 Urine Protein 30mg/dl (1+) (NEG - TRACE) A 01/27/17 16:40 Urine Ketones 10mg/dl (1+) (NEGATIVE) A 01/27/17 16:40 Urine Blood Negative (NEGATIVE) 01/27/17 16:40 Urine Nitrate Positive (NEGATIVE) A 01/27/17 16:40 Urine Bilirubin Negative (NEGATIVE) 01/27/17 16:40 Urine Urobilinogen 0.2mg/dl (normal) (NEG-1mg/dL) 01/27/17 16:40 Ur Leukocyte Esterase Negative (NEGATIVE) 01/27/17 16:40 Urine RBC None seen (0-5/hpf) 01/27/17 16:40 Urine WBC 0-4/hpf (0-4/hpf) 01/27/17 16:40 Ur Squamous Epith Cells None seen (<= 15/hpf) 01/27/17 16:40 Urine Bacteria >50 organisms/hpf (<10/hpf) A 01/27/17 16:40 Urine Mucus None seen (Up to 25%) 01/27/17 16:40 Urine Osmolality 714 mOsm/Kg (500-800) 01/27/17 16:40 Urine Creatinine 151.9 mg/dL 01/27/17 16:40 Urine Sodium 32 mmol/L (30-90) 01/27/17 16:40 Urine Glucose Normal (NEGATIVE) 01/27/17 16:40 Assessment and Plan - Date of Encounter Date of Encounter: 01/29/17 (1) hyponatremia Status: Acute Assessment and plan: She presented with a 5 day h/o neck pain. Labs revealed profound hyponatremia of uncertain etiology. Sodium now stable 132. BC IVF. Will follow closely. CXR, CT head, am cortisol all negative. Old records show HCTZ 12.5mg started for BLE edema and elevated BPs. However, she only took this medication for a few days. Unclear etiology of low sodium. Current Visit: Yes (2) neck pain Status: Acute Assessment and plan: She states that she has a h/o neck pain in the past with x-rays showing DDD. She responded to PT. C-spine x-rays show significant multilevel DDD C3-C7, but no fracture or subluxation. LP unsuccessful. No evidence meningitis. Check C- spine MRI. Current Visit: Yes (3) ataxia Status: Acute Assessment and plan: Improved this morning. Most likely related to low sodium. PT evaluation. Will need to be safe with ambulation prior to discharge. Current Visit: Yes (4) UTI Status: Chronic Assessment and plan: No UTI symptoms. >100K GNB. Continue Zosyn until UCx finalized today Current Visit: Yes (5) Hypothyroidism Status: Chronic Assessment and plan: Continue replacement. Old records received and medication list updated. Current Visit: Yes (6) Hyperlipidemia Status: Chronic Assessment and plan: Continue pravastatin. Current Visit: Yes (7) Venous Insufficiency Status: Acute Assessment and plan: Old records state that she has a h/o BLE edema with elevated BPs. I have recommended ambulation, CHRIS hose, and elevation of her BLE. Current Visit: Yes (8) Hypoxemia Status: Acute Assessment and plan: Unclear etiology of hypoxemia. CXR negative yesterday. She drops to low 80s with ambulation. BC IVF today. Begin IS. RT working with patient. Will most likely need home oxygen. Current Visit: Yes - Time Spent With Patient Total time spent with greater than 50% in coordination of care (as documented) at patient's floor/unit and/or counseling patient: 25 - 35 minutes (1 day) Quality Questions - VTE Prophylaxis Assessment VTE Present on Admission?: No Patient at risk for venous thromboembolism?: Yes VTE Risk Level: High Risk Pharmaceutical VTE prophylaxis contraindication reason: N/A- VTE prophylaxsis ordered Mechanical VTE prophylaxis contraindication reason: N/A- VTE prophylaxsis ordered
[2017-01-29] MEDS: METHYLPREDNISOLONE SOD 125 MG/2 ML VIAL IV SCH ×3 (09:41→21:26)
--- NOTE | 2017-01-29 11:42 | MRI REPORT ---
HISTORY: Shooting neck pain. Degenerative disc disease. COMPARISON: None. TECHNIQUE: Multiplanar multi sequential imaging of the cervical spine obtained without IV gadolinium. FINDINGS: Straightening of expected lordosis. Vertebral body height is maintained. Alignment is otherwise maint ained. Discogenic marrow changes at C4-5 and C5-6. No cord signal abnormality. Axial images demonstrate the following: C2-C3: Posterior osteophytic ridging. The spinal canal is patent. Right greater than left facet arthr osis and uncovertebral hypertrophy. Mild right foraminal stenosis. Left foramen is patent. C3-C4: Posterior disc osteophyte complex results in flattening of the ventral cord and mild spinal ca nal stenosis. Right greater than left uncovertebral hypertrophy and facet arthrosis. Moderate right f oraminal stenosis. Left foramen is patent. C4-C5: Posterior disc osteophyte complex results in flattening of the ventral cord and mild spinal ca nal stenosis. Bilateral uncovertebral hypertrophy and facet arthrosis, greater on the right. Severe r ight and moderate left foraminal stenosis. C5-C6: Posterior disc osteophyte complex results in flattening of the ventral cord and mild spinal ca nal stenosis. Bilateral uncovertebral hypertrophy and facet arthrosis result in severe right and mode rate left foraminal stenosis. C6-C7: Posterior disc osteophyte complex results in flattening of the ventral cord and mild spinal ca nal stenosis. Bilateral uncovertebral hypertrophy and facet arthrosis, greater on the left. Moderate left and mild right foraminal stenosis. C7-T1: Posterior osteophytic ridging. Left greater than right uncovertebral hypertrophy and facet art hrosis. Moderate left and mild right foraminal stenosis. IMPRESSION: 1. Multilevel cervical spondylosis as detailed above. Severe right foraminal stenosis at C4-5 and C5- 6. 2. Mild spinal canal stenosis at multiple cervical levels. Final Electronic Signature: This report was electronically signed by Leon Canada MD on 01/29/2017 11:40 AM. silvia /
[2017-01-29 19:32] VITALS: PULSE 87
[2017-01-29] MEDS: PRAVASTATIN SODIUM 40 MG TABLET PO SCH (21:26)
[2017-01-30] MEDS: METHYLPREDNISOLONE SOD 125 MG/2 ML VIAL IV SCH ×2 (03:59→08:58)
[2017-01-30] MEDS: PIPERACILLIN /TAZO 3.375 GM in NORMAL SALINE MINI-BAG+ 100 ML IV SCH (03:59)
[2017-01-30 06:19] LABS: BLOOD UREA NITROGEN 10 mg/dL (7-17); CALCIUM 8.8 mg/dL (8.4-10.2); CHLORIDE 106 mmol/L (98-107); EST GLOMERULAR FILTRATION RATE > 60 mL/min; GLUCOSE 139 mg/dL (70-100); POTASSIUM 3.6 mmol/L (3.5-5.1); SODIUM 134 mmol/L (137-145)
[2017-01-30] MEDS: LEVOTHYROXINE 50 MCG TABLET PO SCH (06:37)
[2017-01-30] MEDS: PANTOPRAZOLE 40 MG TABLET PO SCH (06:38)
[2017-01-30 07:11] VITALS: BP 165/93; RESP 24; TEMP 98.2; O2SAT 90
[2017-01-30 07:45] LABS: BASOPHILS 0.1 % (0.0-2.0); EOSINOPHILS 0.1 % (0.0-6.0); HEMATOCRIT 33.6 % (36.0-48.0); HEMOGLOBIN 11.4 g/dL (12.0-16.0); LYMPHOCYTES 6.8 % (20.0-40.0); LYMPHOCYTES# 0.8 X 10^3uL (0.8-3.8); MEAN CELL VOLUME 88.3 fL (80.0-100.0); MONOCYTES 0.8 % (2.0-10.0); MONOCYTES# 0.1 X 10^3uL (0.2-1.0); NEUTROPHILS# 10.3 X 10^3uL (2.6-6.7); RED BLOOD COUNT 3.81 X 10^6uL (4.20-6.10); WHITE BLOOD COUNT 11.2 X 10^3uL (3.9-10.7)
[2017-01-30 07:53] LABS: NEUTROPHILS 92.2 % (54.0-75.0)
[2017-01-30] MEDS ORDERED: CEPHALEXIN 125 MG/5 ML PO SCH (08:00)
[2017-01-30] MEDS ORDERED: CEPHALEXIN MONOHYDRATE 250 MG CAPSULE PO SCH (08:30)
--- NOTE | 2017-01-30 08:52 | CT REPORT ---
HISTORY: Hypoxemia COMPARISON: Chest radiograph 01/28/2017 TECHNIQUE: This examination was performed using automated exposure control, adjustment of mA or kV according to patient size, and/or use of iterative reconstruction technique. Axial CT imaging from the thoracic i nlet through the upper abdomen following administration of IV contrast during peak opacification of t he pulmonary arteries, multiplanar reformatted and 3-D images are evaluated. 100cc Isovue 370 contrast. FINDINGS: CTA: Pulmonary arteries are well opacified. No pulmonary thromboemboli identified. Main pulmonary art glenda is not dilated. Heart size within normal limits. Mild coronary artery atherosclerotic calcificati on. Lungs/Pleura: Moderate right and small left pleural effusions are present with associated passive ate lectasis. Mild central groundglass opacities are present predominantly within the upper lobes. No dis crete pulmonary nodule. No pneumothorax. Trachea and central bronchi are clear. Asymmetric elevation of right hemidiaphragm. Mediastinum: No mediastinal mass identified. Lymph Nodes: No enlarged lymph nodes by size criteria. Upper abdomen: No significant abnormality identified. Musculoskeletal: No suspicious osseous lesion identified. IMPRESSION: 1. No pulmonary thromboemboli identified. 2. Moderate right and small left pleural effusions with associated atelectasis. Mild central groundgl ass opacities bilaterally may represent mild pulmonary edema or atypical infection. 3. Asymmetric elevation right hemidiaphragm. 4. Mild coronary artery atherosclerotic calcification. Findings discussed with Dr. Arellano by phone at time of dictation. Final Electronic Signature: This report was electronically signed by Michael Garces MD on 01/30/2017 8:50 AM. lee /
--- NOTE | 2017-01-30 09:11 | DC SUMMARY: IM Note ---
Discharge Summary: IM/Peds Provider: Date of Admission: 01/28/17 Admitting Provider: UMA WIGGINS MD Attending Provider: UMA WIGGINS MD Discharging Provider: UMA WIGGINS MD Primary Care Provider: Discharge Date: 01/30/17 - Diagnosis (1) hyponatremia Status: Acute (2) neck pain Status: Acute (3) ataxia Status: Acute (4) UTI Status: Chronic (5) Hypothyroidism Status: Chronic (6) Hyperlipidemia Status: Chronic (7) Venous Insufficiency Status: Acute (8) Hypoxemia Status: Acute (9) Degenerative disc disease Status: Acute Qualifiers: Spinal region: unspecified cervical region Qualified Code(s): M50.30 - Other cervical disc degeneration, unspecified cervical region (10) Pleural effusion Status: Acute - Time Spent with Patient Total time spent providing and/or coordinating discharge services: Time with patient DS: Greater than 30 minutes (>1 hour spent with pat and ) Discharge - Patient/Caregiver Discharge Instructions Activity Level: As tolerated. Diet: Regular Follow up: UMA WIGGINS MD [Primary Care Provider] - 7 Days Overall discharge status: patient is not back to baseline Print Language: TAJIK Disposition: [facility] Discharge Summary Data - Medication History Medication History: Home Medications Calcium 600 mg PO DAILY 01/28/17 Glucosamine Chondroitin Tab 1,000 mg PO EVERY OTHER DAY 01/28/17 Ibuprofen [Ibuprofen*] 400 mg PO TID PRN 01/28/17 Levothyroxine [Synthroid*] 50 mcg PO EVERY MORNING 01/28/17 Multivitamins,Therapeutic [Thera Multivitamin*] 1 tab PO WEEKLY 01/28/17 Omeprazole [Prilosec] 20 mg PO DAILY PRN 01/28/17 Pravastatin Sodium [Pravachol] 40 mg PO BEDTIME (DAILY) 01/28/17 Inpatient Medications 01/28/17 19:21 hydroMORPHone HCL [dilaUDID] 0.5 mg IV Q3H PRN 01/29/17 09:00 Methylprednisolone Sod [Solu-Medrol] 125 mg IV Q6H 01/30/17 08:30 Cephalexin Monohydrate [Keflex] 500 mg PO Q12H 01/30/17 10:00 Piperacillin /Tazo [Zosyn] 3.375 gm Normal Saline Mini-Bag+ [Sodium Chloride 100 ml Mini-Bag Plus] 100 ml IV Q6H Procedures and tests throughout hospitalization: Completed Lab Orders 01/28/17 15:40 ALBUMIN [CHEM] Stat BASIC METABOLIC PANEL [CHEM] Stat 01/30/17 05:35 BMP [BASIC METABOLIC PANEL] [CHEM] AMDRAW 01/30/17 07:30 crp arthritis [C-REACTIVE PROTEIN] [CHEM] Urgent 01/30/17 07:35 CBC AUTO DIF, MDIF/RMOR IF IND [HEM] Stat 01/30/17 07:57 BNP,NT-PRO [CHEM] Stat Completed Imaging Orders 01/29/17 08:54 MRI [CERVICAL SPINE W/O 53960] [MRI] Stat 01/30/17 07:56 ct [CAT SCAN; CHEST ANGIO 75061] [CT] Stat Pending Orders 01/28/17 16:31 Physical Therapy Plan of Care [PT] Routine 01/28/17 19:21 hydroMORPHone HCL [dilaUDID] 0.5 mg IV Q3H PRN 01/29/17 09:00 Methylprednisolone Sod [Solu-Medrol] 125 mg IV Q6H 01/29/17 09:07 Incentive Spirometry Q1H Teach: Incentive Spirometry . 01/29/17 13:17 ANTI NUCLEAR ANTIBODY [SEND] Routine 01/30/17 08:30 Cephalexin Monohydrate [Keflex] 500 mg PO Q12H 01/30/17 10:00 Piperacillin /Tazo [Zosyn] 3.375 gm Normal Saline Mini-Bag+ [Sodium Chloride 100 ml Mini-Bag Plus] 100 ml IV Q6H Labs on day of discharge: Labs from last 24 hours 01/30/17 01/30/17 01/30/17 07:57 07:35 07:30 WBC 11.2 H RBC 3.81 L Hgb 11.4 L Hct 33.6 L MCV 88.3 MCH 30.0 MCHC 34.0 RDW 13.0 Plt Count 302 MPV 8.0 Neutrophils % 92.2 H Lymphocytes % 6.8 L Eosinophils % 0.1 Basophils % 0.1 Neutrophils # 10.3 H Lymphocytes # 0.8 Monocytes 0.8 L Monocytes # 0.1 L Eosinophils # 0.0 Basophils # 0.0 Sodium Potassium Chloride Carbon Dioxide BUN Creatinine GFR Calculation Glucose Calcium C-Reactive Protein 37.2 H NT-Pro-B Natriuret Pep 1820 H Anti-Nuclear Antibody 01/30/17 01/29/17 05:35 13:17 WBC RBC Hgb Hct MCV MCH MCHC RDW Plt Count MPV Neutrophils % Lymphocytes % Eosinophils % Basophils % Neutrophils # Lymphocytes # Monocytes Monocytes # Eosinophils # Basophils # Sodium 134 L Potassium 3.6 Chloride 106 Carbon Dioxide 21 L BUN 10 Creatinine 0.7 GFR Calculation > 60 Glucose 139 H Calcium 8.8 C-Reactive Protein NT-Pro-B Natriuret Pep Anti-Nuclear Antibody Pending - Impressions See dictated report. IM: Discharge Physical Exam - I&O/Vital Signs I&O: Intake & Output 01/29/17 01/30/17 01/30/17 21:59 05:59 13:59 Intake Total 920 1000 Output Total 450 250 Balance 470 750 Intake: IV 650 Left Wrist 650 Oral 920 350 Output: Urine 450 250 Other: Urine Appearance Clear Urine Color Yellow Stool Size Moderate Stool Characteristics Liquid Brown Voiding Method Toilet Toilet # Bowel Movements 2 Vital Signs: Last Vital Signs Temp 36.8 C 01/30/17 07:00 Pulse 87 01/30/17 07:00 Resp 24 01/30/17 07:00 BP 165/93 01/30/17 07:00 Pulse Ox 90 01/30/17 07:00 Oxygen Flow Rate 2 Oxygen Delivery Method Nasal Cannula - Constitutional General appearance: Present: cooperative, other (Nontoxic.). Absent: acute distress - Head Head exam: Present: atraumatic, normal inspection, normocephalic - Eye Eye exam: Present: EOMI, PERRL - ENT ENT exam: Present: mucous membranes moist - Neck Neck exam: Present: full ROM, tenderness (R >L cervical neck midline and paracervical reproducible pain.) - Respiratory Respiratory exam: Present: rales (Increased bibasilar rales.). Absent: accessory muscle use, respiratory distress - Cardiovascular Cardiovascular exam: Present: RRR. Absent: rubs, systolic murmur - GI/Abdominal GI/Abdominal exam: Present: normal bowel sounds, soft. Absent: organomegaly, tenderness - Extremities Exam Extremities exam: Present: tenderness (Improved B knee and diffuse BLE pain. ) . Absent: calf tenderness, Breanna's Sign, edema - Back Exam Back exam: Absent: paraspinal tenderness, vertebral tenderness - Neurological Exam Neurological exam: Present: abnormal gait (Ataxia yesterday. Not retested today , but ataxia reported per nursing staff. ), alert, CN II-XII intact, oriented X3 - Psychiatric Psychiatric exam: Present: normal affect, normal mood - Skin Skin exam: Absent: rash - Allied Health Notes Allied health notes reviewed: nursing (I have spoken with nursing staff multiple times overnight and again this morning.), PT, RT
[2017-01-30] MEDS ORDERED: NORMAL SALINE IV SCH (10:00)
[2017-01-30] MEDS ORDERED: PIPERACILLIN /TAZO 3.375 GM in NORMAL SALINE MINI-BAG+ 100 ML IV SCH (10:00)
[2017-01-30] MEDS ORDERED: ACYCLOVIR IV SCH (10:00)
--- NOTE | 2017-01-30 20:30 | DISCHARGE SUMMARY ---
DATE OF ADMISSION: 01/27/17 DATE OF DISCHARGE: 01/30/17 ATTENDING PHYSICIAN: Mayela Arellano MD PRIMARY CARE PHYSICIAN: Fatoumata Cool MD ([facility], [facility], [place] [address], phone [phone]). DISCHARGE DIAGNOSES 1. Neck pain. 2. Degenerative disk disease of cervical spine. 3. Hyponatremia. 4. Ataxia. 5. Hypoxemia. 6. Bilateral pleural effusions. 7. Leukocytosis. 8. Escherichia Coli urinary tract infection. 9. Anemia. 10. Low albumin. STUDIES DONE: Initial laboratories CBC white count 14.0, hemoglobin 14.4, hematocrit 40.8, platelets 320. Repeat CBC white count 11.2, hemoglobin 11.4, hematocrit 33.6, platelets 302 with 92.2% neutrophils. CMP sodium 115, chloride 83, bicarb 23, C-reactive protein 80.5, TSH and free-T4 normal. Urine osmolality 714, urine sodium 32, urine creatinine was 51.9, sed rate 12. Troponin less than 0.012. Urine culture: greater than 100,000 E. Coli sensitive to all antibiotics. Blood cultures show no growth to date. BNP 1,820. C- reactive protein upon discharge 37.2. Cortisol 12.1. On 01/30/17 CT angiogram chest showed no pulmonary embolism, moderate right and small left pleural effusions with associated atelectasis, mild central ground glass opacities bilaterally, may represent pulmonary edema or atypical infection. Asymmetric elevation of right hemidiaphragm, mild coronary artery atherosclerosis calcification. C-spine MRI scan without contrast showed multilevel cervical spondylosis. Severe right foraminal stenosis at C4-5 and C5-6. Mild spinal canal stenosis at multiple cervical levels. Head CT without contrast with no acute infarct or hemorrhage. No mass. Chronic small vessel ischemic disease. Chest x-ray negative other than elevation of right hemidiaphragm. Neck x-ray shows significant multilevel degenerative disk disease at all levels. SUMMARY OF STAY: This is a very pleasant 76-year-old female who is a summer resident of [place]. However, she has never been seen in the [facility] system. She presented to the Emergency Room on 01/25/17 with neck pain. She was discharged home on muscle relaxants and narcotics. She came into the office on 01/27/17 with worsening neck pain, diffuse myalgias and extreme fatigue. Her exam was only remarkable for ataxia and reproducible midline and paracervical neck pain. However, she had full range of motion of her neck and no meningismus. She was sent to the lab after hours for stat labs. The plan was to have a CT of the head and plain views of the neck to be done the following day. The laboratory called with a critical value of sodium 115, and she was brought into the Emergency Room. A lumbar puncture was unsuccessful. Our suspicion for meningitis was quite low. She had not had any fevers, chills or sweats at home. She was treated with meningitic dosages of Zosyn 3.375 grams IV every 6 hours for a total of 36 hours. Her urinalysis was abnormal in the Emergency Room. However, she was not having any symptoms of urinary tract infection. 1. Hyponatremia. She was treated initially with normal saline boluses with gradual improvement of her sodium. She was then treated with continuous normal saline until her sodium was 130. Her IVF were then buff capped. Her normal saline was 134 upon discharge. Her workup for hyponatremia included a normal cortisol, negative chest x-ray, normal CT of the head, and normal thyroid test results. 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 Of note, old records from 11/2016, show a normal sodium at 138. 2. Neck pain. As stated above, lumbar puncture in the Emergency Room was unsuccessful. Our suspicion for meningitis was very low. She was treated with meningitic dosages of Zosyn. Her blood cultures are no growth to date. Her urine culture grew E. Coli which is more than adequately treated with Zosyn. Cervical neck MRI showed diffuse degenerative disk disease. She required Dilaudid 0.5 mg every 2-3 hours around the clock with minimal to no relief of her pain. Solu-Medrol 125 mg IV every 6 hours was started on the third day of hospitalization in attempt to improve neck pain control, especially in light of her MRI results. However, after 24 hours of IV steroids, she did not have any relief in her symptoms. It was decided that given her uncontrolled pain and significant degenerative disk disease, it was appropriate to transfer her to a higher level of care with neurosurgeons available. On the day of discharge, she did receive Cephalexin 500 mg times one dose for treatment of her urinary tract infection and Zosyn was discontinued. However, after speaking with Hospitalist at [facility], the Zosyn was restarted prior to her transfer. 3. Hypoxemia. Upon presentation, she was 92% on room air and was not having any chest pain, shortness of breath or cough. She received large amounts of IV fluids due to her low sodium, and on the day of discharge, her oxygen saturation dropped into the low 80s on 2 liters of oxygen with ambulation. Stat CT angiogram was done which showed no pulmonary embolism, but did show bilateral pleural effusions with ground glass appearance which most likely was thought to represent pulmonary edema or atypical infection. She did complain of shortness of breath and cough on the day of discharge. 4. Ataxia. Patient presented with significant ataxia on the day of admission. Her ataxia improved with the correction of her sodium and physical therapy. 5. Abnormal EKG. Patient had an EKG showing abnormal R-wave progression. She was not having any anginal symptoms. Cardiology consultation was obtained. Pipe And Test Supervisor felt that EKG was normal for age and that she did not have any underlying cardiac issues. Of note, her troponin was negative. DISCHARGE MEDICATIONS Acyclovir 670 mg IV with first dose given on route to [facility]. Hydromorphone 0.5 mg IV every 2 hours as needed for pain. Levothyroxine 50 mcg daily. Methylprednisolone 125 mg IV q.6 hours. Zofran 4 mg IV every 6 hours as needed. Protonix 40 mg in the morning. Zosyn 3.375 grams IV every 6 hours. MiraLax 17 grams rectally as needed for constipation. Lovastatin 40 mg at bedtime. PLAN: She was transferred by ambulance to [facility] under the care of Hospitalist Dr. Cedeño. Copies to: Fatoumata Cool MD ([facility], [facility] [place] [address], phone [phone]); Marcia Cedeño MD ([facility]). [facility]
== END 2017-01-30 09:31 | disposition short-term general hospital (02) | DRG 92 ==
LOC: ER 19:16 → IN 01-28 00:15 → OBSVTOIN 01-28 09:05
PROVIDERS: ADMIT Family Medicine; ATTEND Family Medicine
DX: R26.0 Ataxic gait (principal); E87.1 Hypo-osmolality and hyponatremia; N39.0 Urinary tract infection, site not specified; E03.9 Hypothyroidism, unspecified; E78.5 Hyperlipidemia, unspecified; R09.02 Hypoxemia; M54.2 Cervicalgia; G89.29 Other chronic pain; D64.9 Anemia, unspecified; M50.30 Other cervical disc degeneration, unspecified cervical region; E88.09 Other disorders of plasma-protein metabolism, not elsewhere classified; D72.829 Elevated white blood cell count, unspecified; Z74.3 Need for continuous supervision; Z79.899 Other long term (current) drug therapy
CPT/HCPCS: 36415; 62270; 70450; 71020; 71275; 72141; 80048; 81001; 82040; 82533; 82570; 83880; 83930; 83935; 84300; 84484; 85025; 86039; 86140; 87077; 87086; 87186; 93005; 93010; 93041; 94760; 96361; 96365; 96374; 96375; 96376; 99285; A0425; A0427; G8978; G8979; J1170; J1885; J2405; J2543; J2930; J7030